=== PATIENT | male | born 1980 | race African-American/Black ===

== ENCOUNTER 2021-06-06 14:33 | Outpatient (CLI) | payer OTHER, SELFPAY ==
[2021-06-06 16:44] LABS: Liquefaction Semen Complete in 30 min. (<30 minutes); Semen Color Opaque (Grey-opaque); Semen Immotility 80 %; Semen Non-Progressive Motility 10 %; Semen Progressive Motility 10 % (>32); Semen Total Motility 20 (>40% (PM+NP)); Semen Viscosity Increased (Not Increa.)
[2021-06-06 16:50] LABS: Semen Morphology Result to Follow; Sperm Count 12.2 Mil/mL (60-150 million/mL)
[2021-06-11 16:13] LABS: Fructose, Semen 394 mg/dL (150-600)
== END 2021-06-06 14:34 | disposition home or self-care (01) ==
PROVIDERS: Visit Provider Advanced Practice Midwife
DX: Z30.09 Encounter for other general counseling and advice on contraception (principal)
CPT/HCPCS: 82757; 88160; 89320

== ENCOUNTER 2021-07-04 15:04 | Outpatient (CLI) | payer OTHER, SELFPAY ==
[2021-07-04 16:38] LABS: Liquefaction Semen Complete in 30 min. (<30 minutes); Semen Color Opaque (Grey-opaque); Semen Immotility 50 %; Semen Non-Progressive Motility 10 %; Semen Progressive Motility 40 % (>32); Semen Viscosity Increased (Not Increa.); Volume Semen 1.5 mL (1.5-5.0)
[2021-07-04 16:39] LABS: Semen Morphology Result to Follow; Semen Total Motility 50 (>40% (PM+NP)); Sperm Count 23.9 Mil/mL (60-150 million/mL)
[2021-07-09 15:31] LABS: Fructose, Semen 181 mg/dL (150-600)
== END 2021-07-04 15:05 | disposition home or self-care (01) ==
LOC: CHSLAB 15:08
PROVIDERS: Visit Provider Advanced Practice Midwife
DX: Z30.09 Encounter for other general counseling and advice on contraception (principal)
CPT/HCPCS: 82757; 88160; 89320

== ENCOUNTER 2022-09-01 14:02 | Outpatient (CLI) | payer OTHER, SELFPAY ==
[2022-09-01 17:20] LABS: Liquefaction Semen Complete in 30 min. (<30 minutes); Semen Color Opaque (Grey-opaque); Semen Non-Progressive Motility 10 %; Semen Progressive Motility 40 % (>32); Semen Viscosity Not Increased (Not Increa.); Volume Semen 1.5 mL (1.5-5.0)
[2022-09-01 17:21] LABS: Semen Immotility 50 %; Semen Morphology Result to Follow; Semen Total Motility 50 (>40% (PM+NP)); Sperm Count 13.1 Mil/mL (60-150 million/mL)
[2022-09-08 14:05] LABS: Fructose, Semen 507 mg/dL (150-600)
== END 2022-09-01 14:03 | disposition home or self-care (01) ==
LOC: CHSLAB 14:07
PROVIDERS: Visit Provider Urology
DX: N46.9 Male infertility, unspecified (principal)
CPT/HCPCS: 82757; 88160; 89320